=== PATIENT | male | born 1955 | race Caucasian/White ===

== ENCOUNTER 2022-12-15 15:54 | Emergency (ER) | payer MEDICARE ==
[~2022-12-15] VITALS: Ht 188 cm; Wt 99.8 kg
[2022-12-15] MEDS ORDERED: LIDOCAINE 1% W/EPINEPHRINE 20 ML VIAL ONE (16:08)
[2022-12-15] MEDS ORDERED: LIDOCAINE 1% W/EPINEPHRINE 20 ML VIAL INJ ONE (16:15)
[2022-12-15] MEDS ORDERED: TETANUS/DIPHTHERIA TOX ADULT 0.5 ML SYR IM ONE (16:30)
[2022-12-15] MEDS ORDERED: ULTRAM 50MG50 MG PO (18:28)
== END 2022-12-15 18:55 | disposition home or self-care (01) ==
LOC: ER 16:00
DX: S01.112A Laceration without foreign body of left eyelid and periocular area, initial encounter (principal); S62.111A Displaced fracture of triquetrum [cuneiform] bone, right wrist, initial encounter for closed fracture; W01.0XXA Fall on same level from slipping, tripping and stumbling without subsequent striking against object, initial encounter; Y93.01 Activity, walking, marching and hiking; Y92.512 Supermarket, store or market as the place of occurrence of the external cause; I10 Essential (primary) hypertension; E11.9 Type 2 diabetes mellitus without complications
CPT/HCPCS: 70450; 71101; 72125; 90471; 90714; 99284